=== PATIENT | female | born 1985 | race Caucasian/White ===

== ENCOUNTER 2018-04-08 03:09 | Emergency (ER) | payer OTHER ==
[2018-04-08] MEDS ORDERED: NS 1,000 ML IV ONE (03:17)
--- NOTE | 2018-04-08 03:26 | EDPHY ---
H & P Stated Complaint: abd cramping with vaginal bleeding and cramping 16 weeks preg Time Seen by Provider: 04/08/18 03:26 HPI/ROS: HPI CHIEF COMPLAINT: Vaginal bleeding in . HISTORY OF PRESENT ILLNESS: This otherwise healthy 32-year-old female, currently 16 weeks, presents emergency room with vaginal bleeding and some lower pelvic cramping. Patient states a week and half ago she had a cervical polyp removed. She blood for 3 days after this. Thought this was post surgical operative bleeding. This then resolved. However with the past 24 hr she developed some light vaginal bleeding pink in nature. Worse when she goes to move her stand up or walk. This evening she started bleeding a little bit more and thinks she passed blood clot. Had some lower pelvic cramping and decided come the emergency room for evaluation. Denies recent illness. Denies abdominal trauma. Followed by OBGYN Dr. Lynda Leo Past Medical History: Denies significant medical history Past Surgical History: Recent Cervical polyp removal. Social History: Denies drugs alcohol tobacco. Family History: Noncontributory. ROS REVIEW OF SYSTEMS: 10 Systems were reviewed and negative with the exception of the elements mentioned in the history of present illness. Exam Constitutional triage nursing summary reviewed, vital signs reviewed, awake/ alert. Eyes normal conjunctivae and sclera, EOMI, PERRLA. HENT normal inspection, atraumatic, moist mucus membranes, no epistaxis, neck supple/ no meningismus, no raccoon eyes. Respiratory clear to auscultation bilaterally, normal breath sounds, no respiratory distress, no wheezing. Cardiovascular rate normal, regular rhythm, no murmur, no edema, distal pulses normal. Gastrointestinal soft, non-tender, no rebound, no guarding, normal bowel sounds, no distension, no pulsatile mass. Genitourinary no CVA tenderness. Musculoskeletal no midline vertebral tenderness, full range of motion, no calf swelling, no tenderness of extremities, no meningismus, good pulses, neurovascularly intact. Skin pink, warm, & dry, no rash, skin atraumatic. Neurologic awake, alert and oriented x 3, AAOx3, moves all 4 extremities equally, motor intact, sensory intact, CN II-XII intact, normal cerebellar, normal vision, normal speech. Psychiatric normal mood/affect. Heme/Lymph/Immune no lymphadenopathy. Differential Diagnosis: Includes but is not limited to in a particular order threatened miscarriage, placenta previa, placental abruption, ectopic , bleeding from the cervix, Medical Decision Making: Plan for this patient blood work, type and screen Rh, beta quant, ultrasound a . Re-evaluate. Will also touch base with her OBGYN Dr. Leo Re-evaluation: Ultrasound unremarkable. Called to me by Dr. Morley. [id number], healthy, no previa or abruption. Unremarkable us. Spoke with Dr. Persaud, educational recruiter OBGYN, discussed case in detail. She is okay with patient going home. Should follow up with the office on Sunday and call for follow-up appointment. Discussed her urinalysis. Urine culture is okay to send. Did not want her treated as she has no symptoms and they will follow this up in clinic. Discussed this with the patient. Source: Patient - Personal History LMP (Females 10-55): EDC: 09/24/18 Current Tetanus/Diphtheria Vaccine: Yes Current Tetanus Diphtheria and Acellular Pertussis (TDAP): Yes - Medical/Surgical History Hx Asthma: No Hx Chronic Respiratory Disease: No Hx Diabetes: No Hx Cardiac Disease: No Hx Renal Disease: No Hx Cirrhosis: No Hx Alcoholism: No Hx HIV/AIDS: No Hx Splenectomy or Spleen Trauma: No Other PMH: wisdom teeth - Social History Smoking Status: Never smoked Constitutional: Initial Vital Signs Temperature (C) 37.1 C 04/08/18 03:11 Heart Rate 82 04/08/18 03:11 Respiratory Rate 16 04/08/18 03:11 Blood Pressure 125/63 H 04/08/18 03:11 O2 Sat (%) 97 04/08/18 03:11 O2 Delivery Mode Room Air Allergies/Adverse Reactions: No Known Allergies Allergy (Unverified 04/08/18 03:14) Home Medications: Medication Instructions Recorded NK [No Known Home Meds] 04/08/18 Medical Decision Making - Data Points Laboratory Results: Laboratory Results 04/08/18 03:30 04/08/18 03:30 04/08/18 04/08/18 04/08/18 03:30 03:30 03:30 WBC RBC Hgb Hct MCV MCH MCHC RDW Plt Count MPV Neut % (Auto) Lymph % (Auto) [place] % (Auto) Eos % (Auto) Baso % (Auto) Nucleat RBC Rel Count Absolute Neuts (auto) Absolute Lymphs (auto) Absolute Monos (auto) Absolute Eos (auto) Absolute Basos (auto) Absolute Nucleated RBC Immature Gran % Immature Gran # Sodium 138 mEq/L mEq/L (135-145) Potassium 4.0 mEq/L mEq/L (3.3-5.0) Chloride 105 mEq/L mEq/L (97-110) Carbon Dioxide 24 mEq/l mEq/l (22-31) Anion Gap 9 mEq/L mEq/L (8-16) BUN 11 mg/dL mg/dL (7-23) Creatinine 0.6 mg/dL mg/dL (0.6-1.0) Estimated GFR > 60 Glucose 88 mg/dL mg/dL (70-100) Calcium 8.9 mg/dL mg/dL (8.5-10.4) Beta HCG, Quant 40723.00 mIU/mL H mIU/mL (0.00-4.83) Urine Color YELLOW Urine Appearance CLEAR Urine pH 6.0 (5.0-7.5) Ur Specific [place] 1.010 (1.002-1.030) Urine Protein NEGATIVE (NEGATIVE) Urine Ketones NEGATIVE (NEGATIVE) Urine Blood 1+ H (NEGATIVE) Urine Nitrate NEGATIVE (NEGATIVE) Urine Bilirubin NEGATIVE (NEGATIVE) Urine Urobilinogen NEGATIVE EU EU (0.2-1.0) Ur Leukocyte Esterase TRACE H (NEGATIVE) Urine RBC 1-3 /hpf /hpf (0-3) Urine WBC 3-5 /hpf H /hpf (0-3) Ur Epithelial Cells TRACE /lpf /lpf (NONE-1+) Urine Bacteria 1+ /hpf H /hpf (NONE SEEN) Urine Mucus TRACE /lpf /lpf (NONE-1+) Urine Glucose NEGATIVE (NEGATIVE) Patient ABO/Rh A NEGATIVE 04/08/18 03:30 WBC 10.40 10^3/uL H 10^3/uL (3.80-9.50) RBC 3.92 10^6/uL L 10^6/uL (4.18-5.33) Hgb 11.6 g/dL L g/dL (12.6-16.3) Hct 33.1 % L % (38.0-47.0) MCV 84.4 fL fL (81.5-99.8) MCH 29.6 pg pg (27.9-34.1) MCHC 35.0 g/dL g/dL (32.4-36.7) RDW 12.7 % % (11.5-15.2) Plt Count 156 10^3/uL 10^3/uL (150-400) MPV 9.9 fL fL (8.7-11.7) Neut % (Auto) 72.5 % % (39.3-74.2) Lymph % (Auto) 21.0 % % (15.0-45.0) [place] % (Auto) 5.2 % % (4.5-13.0) Eos % (Auto) 0.8 % % (0.6-7.6) Baso % (Auto) 0.2 % L % (0.3-1.7) Nucleat RBC Rel Count 0.0 % % (0.0-0.2) Absolute Neuts (auto) 7.55 10^3/uL H 10^3/uL (1.70-6.50) Absolute Lymphs (auto) 2.18 10^3/uL 10^3/uL (1.00-3.00) Absolute Monos (auto) 0.54 10^3/uL 10^3/uL (0.30-0.80) Absolute Eos (auto) 0.08 10^3/uL 10^3/uL (0.03-0.40) Absolute Basos (auto) 0.02 10^3/uL 10^3/uL (0.02-0.10) Absolute Nucleated RBC 0.00 10^3/uL 10^3/uL (0-0.01) Immature Gran % 0.3 % % (0.0-1.1) Immature Gran # 0.03 10^3/uL 10^3/uL (0.00-0.10) Sodium Potassium Chloride Carbon Dioxide Anion Gap BUN Creatinine Estimated GFR Glucose Calcium Beta HCG, Quant Urine Color Urine Appearance Urine pH Ur Specific [place] Urine Protein Urine Ketones Urine Blood Urine Nitrate Urine Bilirubin Urine Urobilinogen Ur Leukocyte Esterase Urine RBC Urine WBC Ur Epithelial Cells Urine Bacteria Urine Mucus Urine Glucose Patient ABO/Rh Medications Given: Discontinued Medications Sodium Chloride (Ns) 1,000 mls @ 0 mls/hr IV EDNOW ONE; Wide Open PRN Reason: Protocol Stop: 04/08/18 03:18 Last Admin: 04/08/18 03:39 Dose: 1,000 mls Nitrofurantoin (Macrobid 100mg Prepack#2) 1 btl TAKEHOME EDNOW ONE PRN Reason: Protocol Stop: 04/08/18 04:23 Last Admin: 04/08/18 04:27 Dose: 1 btl Nitrofurantoin Macrocrystals (Macrobid) 100 mg PO EDNOW ONE PRN Reason: Protocol Stop: 04/08/18 04:23 Last Admin: 04/08/18 04:27 Dose: 100 mg Departure - Departure Disposition: Home, Routine, Self-Care Clinical Impression: Vaginal bleeding during Condition: Good Instructions: Threatened Miscarriage (ED) Referrals: NONE *PRIMARY CARE P,. [Primary Care Provider] - As per Instructions Lynda Leo MD [Medical Doctor] - As per Instructions
[2018-04-08 03:43] VITALS: BP 115/62
[2018-04-08 03:48] LABS: PLATELET COUNT 156 10^3/uL (150-400)
[2018-04-08] MEDS ORDERED: NITROFURANTOIN MACROBID 100 MG CAP PO ONE (04:22)
[2018-04-08] MEDS ORDERED: NITROFURANTOIN 100MG PREPACK#2 BTL TAKEHOME ONE (04:22)
== END 2018-04-08 04:57 | disposition home or self-care (01) ==
DX: O26.851 Spotting complicating pregnancy, first trimester (principal); Z3A.16 16 weeks gestation of pregnancy

== ENCOUNTER 2018-04-13 14:19 | Emergency (ER) | payer OTHER ==
--- NOTE | 2018-04-13 16:23 | EDPHY ---
H & P Stated Complaint: vaginal bleeding and cramping for 2 weeks, 16 weeks Time Seen by Provider: 04/13/18 15:44 HPI/ROS: CHIEF COMPLAINT: Blood in urine HISTORY OF PRESENT ILLNESS: 32-year-old female 16 weeks presents with blood in urine. She was seen in this emergency department 04/08/2018 for possible vaginal bleeding. Pelvic ultrasound revealed an IUP, 15 weeks 6 days, without evidence of abruption or placenta previa. Took one dose of abx for possible UTI, felt much better transiently, then sx recurred. She followed up with OBGYN, urine culture negative. Today she had a small amount of blood in the toilet after urination. The bleeding occurs after urination, sometimes when she wipes and other times there is blood in the toilet. s/p cervical polyp removal 2 weeks ago. REVIEW OF SYSTEMS: complete 10 system ROS reviewed and is negative except for the noted symptoms in the HPI - Personal History LMP (Females 10-55): - Medical/Surgical History Hx Asthma: No Hx Chronic Respiratory Disease: No Hx Diabetes: No Hx Cardiac Disease: No Hx Renal Disease: No Hx Cirrhosis: No Hx Alcoholism: No Hx HIV/AIDS: No Hx Splenectomy or Spleen Trauma: No Other PMH: wisdom teeth - Social History Smoking Status: Never smoked Alcohol Use: Sober - Physical Exam Exam: General Appearance: Alert, pleasant Eyes: Pupils equal and round, no conjunctival pallor ENT, Mouth: Mucous membranes moist Neck: Normal inspection Respiratory: Lungs are clear to auscultation Cardiovascular: Regular rate and rhythm Gastrointestinal: Abdomen is soft, gravid, mild suprapubic tenderness Genitourinary:BUSV negative, vaginal vault normal, no bleeding, cervix closed, irregular, no bleeding Neurological: A&O, nonfocal, normal gait Skin: Warm and dry, no rash Extremities: Normal inspection Psychiatric: Mood and affect normal Constitutional: Initial Vital Signs Temperature (C) 36.7 C 04/13/18 14:22 Heart Rate 107 H 04/13/18 14:22 Respiratory Rate 18 04/13/18 14:22 Blood Pressure 145/86 H 04/13/18 14:22 O2 Sat (%) 95 04/13/18 14:22 O2 Delivery Mode Room Air Allergies/Adverse Reactions: No Known Allergies Allergy (Verified 04/13/18 14:21) Home Medications: Medication Instructions Recorded Cephalexin [Keflex (*)] 500 mg PO BID #14 cap 04/13/18 Medical Decision Making ED Course/Re-evaluation: This pt presents with hematuria. exam is normal, without evidence for bleeding. 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 Kidney stone also considered, but pt does not have typical pain of renal colic. Warning signs discussed. Differential Diagnosis: includes though not limited to placenta previa, abruption, miscarriage, kidney stone, UTI - Data Points Medications Given: Discontinued Medications Cephalexin HCl (Keflex) 500 mg PO EDNOW ONE PRN Reason: Protocol Stop: 04/13/18 16:55 Last Admin: 04/13/18 17:02 Dose: 500 mg Departure - Departure Disposition: Home, Routine, Self-Care Clinical Impression: Hematuria due to acute cystitis Condition: Good Instructions: Cephalexin (By mouth), Urinary Tract Infection in Women (ED) Additional Instructions: Return for worsening symptoms or any concerns. Followup with your corporate quality manager in 2-3 days, sooner if worse. Referrals: NONE *PRIMARY CARE P,. [Primary Care Provider] - As per Instructions Prescriptions: Cephalexin [Keflex (*)] 500 mg PO BID #14 cap
[2018-04-13] MEDS ORDERED: CEPHALEXIN 500 MG CAP PO ONE (16:54)
[2018-04-13 17:10] VITALS: BP 136/86
== END 2018-04-13 17:09 | disposition home or self-care (01) ==
DX: O26.851 Spotting complicating pregnancy, first trimester (principal); O23.11 Infections of bladder in pregnancy, first trimester; Z3A.16 16 weeks gestation of pregnancy

== ENCOUNTER 2018-04-24 04:04 | Observation (INO) | payer OTHER ==
[2018-04-24] MEDS ORDERED: NS 1,000 ML IV ONE (04:10)
--- NOTE | 2018-04-24 04:12 | EDPHY ---
H & P Stated Complaint: 18 weeks cramping and bleeding Time Seen by Provider: 04/24/18 04:12 HPI/ROS: HPI CHIEF COMPLAINT: Vaginal bleeding, pelvic cramping HISTORY OF PRESENT ILLNESS: 32-year-old female, she currently 18 weeks , presents emergency room with 45 min of onset vaginal bleeding and pelvic cramping. This woke from sleep. She felt a little wet. Went to the bathroom and developed worsening bleeding. Pelvic cramping. Denies vomiting, denies fever, denies dysuria. Patient states she has A negative type blood Patient's OBGYN is Dr. Leo. Past Medical History: Denies significant medical history Past Surgical History: Cervical polyp removed, previous 2 abortions Social History: Lives locally denies drugs alcohol tobacco. Family History: Noncontributory ROS REVIEW OF SYSTEMS: 10 Systems were reviewed and negative with the exception of the elements mentioned in the history of present illness. Exam Constitutional triage nursing summary reviewed, vital signs reviewed, awake/ alert. Eyes normal conjunctivae and sclera, EOMI, PERRLA. HENT normal inspection, atraumatic, moist mucus membranes, no epistaxis, neck supple/ no meningismus, no raccoon eyes. Respiratory clear to auscultation bilaterally, normal breath sounds, no respiratory distress, no wheezing. Cardiovascular rate normal, regular rhythm, no murmur, no edema, distal pulses normal. Gastrointestinal soft, non-tender, no rebound, no guarding, normal bowel sounds, no distension, no pulsatile mass. Genitourinary no CVA tenderness. Musculoskeletal no midline vertebral tenderness, full range of motion, no calf swelling, no tenderness of extremities, no meningismus, good pulses, neurovascularly intact. Skin pink, warm, & dry, no rash, skin atraumatic. Neurologic awake, alert and oriented x 3, AAOx3, moves all 4 extremities equally, motor intact, sensory intact, CN II-XII intact, normal cerebellar, normal vision, normal speech. Psychiatric normal mood/affect. Heme/Lymph/Immune no lymphadenopathy. Differential Diagnosis: Includes but is not limited to in a particular order : Threatened miscarriage, bleeding in , placenta previa. Medical Decision Making: Plan for this patient IV establishment, basic blood work, ultrasound, IV fluid bolus. Re-evaluation: Ultrasound reviewed. This shows oligohydramnios, HR 163. Otherwise negative US 0527: I spoke with Dr. Watt, reviewed the case in detail with her. Patient will most likely go to L and D. 0532AM: Spoke with Dr. Watt, Will see patient LD. Observation Source: Patient - Personal History LMP (Females 10-55): EDC: 09/24/17 Current Tetanus/Diphtheria Vaccine: Yes Current Tetanus Diphtheria and Acellular Pertussis (TDAP): Yes - Medical/Surgical History Hx Asthma: No Hx Chronic Respiratory Disease: No Hx Diabetes: No Hx Cardiac Disease: No Hx Renal Disease: No Hx Cirrhosis: No Hx Alcoholism: No Hx HIV/AIDS: No Hx Splenectomy or Spleen Trauma: No Other PMH: wisdom teeth - Social History Smoking Status: Never smoked Constitutional: Initial Vital Signs Temperature (C) 36.5 C 04/24/18 04:08 Heart Rate 118 H 04/24/18 04:08 Respiratory Rate 16 04/24/18 04:08 Blood Pressure 152/78 H 04/24/18 04:08 O2 Sat (%) 97 04/24/18 04:08 O2 Delivery Mode Room Air Allergies/Adverse Reactions: No Known Allergies Allergy (Verified 04/24/18 04:10) Home Medications: Medication Instructions Recorded Cephalexin [Keflex (*)] 500 mg PO BID #14 cap 04/13/18 Medical Decision Making - Data Points Laboratory Results: Laboratory Results 04/24/18 04:38 04/24/18 04:38 Medications Given: Discontinued Medications Acetaminophen (Tylenol) 1,000 mg PO ONCE ONE Stop: 04/25/18 14:02 Last Admin: 04/25/18 14:54 Dose: 1,000 mg Sodium Chloride (Ns) 1,000 mls @ 0 mls/hr IV EDNOW ONE; Wide Open PRN Reason: Protocol Stop: 04/24/18 04:11 Last Admin: 04/24/18 04:56 Dose: 1,000 mls Departure - Departure Disposition: [facility] Clinical Impression: Threatened miscarriage Condition: Good
[2018-04-24 04:53] LABS: PLATELET COUNT 158 10^3/uL (150-400)
[2018-04-24 06:26] VITALS: BP 138/64
--- NOTE | 2018-04-24 07:35 | GHP ---
DATE OF ADMISSION: 04/24/2018 ADMITTING DIAGNOSES: 1. Intrauterine at 18 weeks 1 day. 2. Vaginal bleeding. 3. Pelvic cramping. HISTORY OF PRESENT ILLNESS: The patient is a 32-year-old, 3, para 0-0-2 -0 at 18 weeks 1 day with estimated due date 09/24/2018 by last menstrual period 12/18/2017 and consistent with first trimester ultrasound at 9 weeks. The patient presents to the emergency room with complaints of vaginal bleeding and pelvic cramping that started 45 minutes prior to coming into the hospital. The patient states she was sleeping and woke up feeling wet. She went to the bathroom and noticed there was bright red bleeding. The patient is having menstrual type cramping this morning as well as low back pain. The patient states prior to this, for about 2-3 weeks, she has had pinkish-red spotting only when she urinates. She has never stained her underwear. About a month ago she had a cervical polyp removed, and currently is on pelvic rest. She is not doing any heavy lifting. The patient denies any fevers, chills, nausea, vomiting. The patient has good care at [facility] and presented in her first trimester. The is complicated by bleeding at 14 weeks where she did receive Rhogam for being Rh negative. Elevated BMI with normal early Glucola. Patient recently found out results of abnormal AFP and has Level II with MFM 05/06/18. Innatal screen was negative. PAST OB HISTORY: Therapeutic x2. PAST ICU REGISTERED NURSE HISTORY: Age of menarche is 12. Cycles are regular, every 24-25 days for 2-3 days. Patient denies a history of abnormal Pap smears, but did have + HPV in the past and no colpo done. Denies exposure to any other STDs. GC/CT cultures negative 02/15/18. MEDICATIONS: vitamins with DHA. ALLERGIES: Amoxicillin. PAST MEDICAL HISTORY: ? Allergy-induced asthma, anxiety. PAST SURGICAL HISTORY: TAB x2. FAMILY HISTORY: Mother with kidney stones. Father with hypertension. SOCIAL HISTORY: She is and lives with her . She is a consultative sales associate. Denies any alcohol, tobacco, or illicit drug use currently. REVIEW OF SYSTEMS: 10-point review of systems is negative. Pertinent positives noted in HPI. LABS: First trimester H and H 12.7 and 36.7, platelets 160. A negative , Antibody negative. Early glucola 79. RPR nonreactive. Rubella immune. HBSAg negative. HIV negative. Standard panel negative. UDS negative. Varicella immune. UA and culture negative. Innatal negative. AFP abnormal / NTD risk. LABORATORY: WBC 10.88. H and H, 11.7 and 33. STUDIES: Ultrasound reveals FHR 163 bpm. Oligo with KASSI at 3 cm. Anterior placenta with no previa. Cervix is closed. OBJECTIVE: VITAL SIGNS: On admission are stable. The patient is afebrile at 36.4. Heart rate 98. Respirations 16. Blood pressure 138/4. GENERAL: Well- nourished, well-developed female. Alert and oriented x3. No apparent distress. SKIN: Warm, dry, no rash. NEURO: Grossly intact. CARDIOVASCULAR: Regular rate and rhythm. LUNGS: Clear to auscultation bilaterally. ABDOMEN: Gravid, soft, nontender. PELVIC EXAM: There is blood noted in the vaginal vault with blood coming from the cervical os. Cervix appears closed. EXTREMITIES: Normal to inspection without calf tenderness or edema. heart rate by doppler was in 160's. ASSESSMENT/PLAN: Patient is a 32-year-old, 3, para 0-0-2-0 at 18 weeks and 1 day with vaginal bleeding, pelvic cramping and oligohydramnios 1. Admit to Labor and Delivery for observation. 2. Reviewed u/s findings with patient showing oligo- low amniotic fluid. Discussed different causes including anomalies, PPROM, and abruption. 3. Fern test was negative, result may not be accurate secondary to blood. Unable to preform Amnisure and/or nitrazine secondary to bleeding. Cannot role out ROM at this time. 4. Patient needs level II u/s with [facility], will try to schedule when they are here in hospital this week. 5. Will continue to closely monitor for continue bleeding and s/s of labor. /[id number]/MODL MTDD
--- NOTE | 2018-04-24 09:49 | OBPROG ---
Labor Progress Note Assessment/Plan: Assessment: 32 yo at 18w1d with vaginal bleeding and possible leakage of fluid, low KASSI, abnl MSAFP. Plan: Continue observation for now. Quantify blood loss with weighing pads. Would be best to determine if has had PPROM occur, with regards to infection risk and prognosis. Spoke with Dr. Khloe Blackwell [facility], pediatric occupational therapist at the [place] - recommended continued observation for now. Will plan for observation until no bleeding for at least 24 hours. Unfortunately, [facility] are not seeing pts here in [place] until Sunday, which is 5 days from now. Will attempt to get a an appointment for pt for Sunday. RH neg - received Rhogam on 03/25/18 Lynda Leo MD, FACOG, [facility] 04/24/18 16:17 04/24/18 16:17 Subjective/Intrapartum Course: Pt seen around 1000, minimal bleeding since arrival in L&D. Occasional cramping. Describes a story with about 3 episodes of leaking fluid over the past 1.5 weeks , though she thought it was just urinary incontinence. Objective: Temp Pulse Resp BP Pulse Ox 36.4 C 88 16 138/64 H 98 04/24/18 06:25 04/24/18 06:25 04/24/18 06:25 04/24/18 06:25 04/24/18 06:25 gen - pleasant, NAD CV - RRR chest - CTAB abd - soft, gravid, NT ext - calves NT, trace edema peripad - small amount red blood on pad over past hour FHT doppled at 160 Oxytocin Orders Assessment - Pre-Induction/Augmentation Assessment Gestational Age: 18 week(s) and 1 day(s) ICD10 Worksheet Patient Problems: Problems Problem Status Onset Threatened miscarriage Acute
--- NOTE | 2018-04-24 19:02 | OBPROG ---
Labor Progress Note Assessment/Plan: Assessment: 32 yo at 18w1d with vaginal bleeding and possible leakage of fluid, low KASSI, abnl MSAFP. Plan: Continue observation for now. Quantify blood loss with weighing pads. Would be best to determine if has had PPROM occur, with regards to infection risk and prognosis. Spoke with Dr. Khloe Blackwell, [facility], custodial operations manager at the [place] - recommended continued observation for now. Will plan for observation until no bleeding for at least 24 hours. Unfortunately, [facility] are not seeing pts here in [place] until Sunday, which is 5 days from now. Will attempt to get a an appointment for pt for Sunday. RH neg - received Rhogam on 03/25/18 Lynda Leo MD, FACOG, [facility] A/P: 32 yo at 18w1d with vaginal bleeding, low KASSI, abnl MSAFP - continued small amount of spotting today. During the day today - bleeding is only with urination. Will obtain renal ultrasound, and brief ultrasound to recheck KASSI and get an EFW. [facility] not in [place] tomorrow and no other availability at other clinics until Sunday so will schedule MFM appointment on Sunday here at [facility]. S/P Rhogam 03/25/18 Lynda Leo MD, FACOG [facility] 04/24/18 18:57 Subjective/Intrapartum Course: Pt seen around 1000, minimal bleeding since arrival in L&D. Occasional cramping. Describes a story with about 3 episodes of leaking fluid over the past 1.5 weeks , though she thought it was just urinary incontinence. 04/24/18 19:02 Pt doing well. Minimal spotting on pad throughout the day. When voids - has drops of blood into toilet. No back pain. Minimal cramping. No episodes of fluid leakage today. Objective: Patient ABO/Rh A NEGATIVE 04/24/18 10:05 Temp Pulse Resp BP Pulse Ox 36.4 C 88 16 138/64 H 98 04/24/18 06:25 04/24/18 06:25 04/24/18 06:25 04/24/18 06:25 04/24/18 06:25 gen - pleasant, NAD back - no CVAT abd - gravid, soft, fundus nontender ext - calves NT pads weighed - total <10ml - FHR Assessment Meza FHR (bpm): 156 (on doppler) Oxytocin Orders Assessment - Pre-Induction/Augmentation Assessment Gestational Age: 18 week(s) and 1 day(s) ICD10 Worksheet Patient Problems: Problems Problem Status Onset Threatened miscarriage Acute
--- NOTE | 2018-04-24 21:13 | OBPROG ---
Labor Progress Note Assessment/Plan: Assessment: 32 yo at 18w1d with vaginal bleeding and possible leakage of fluid, low KASSI, abnl MSAFP. Plan: Continue observation for now. Quantify blood loss with weighing pads. Would be best to determine if has had PPROM occur, with regards to infection risk and prognosis. Spoke with Dr. Khloe Blackwell, [facility], manager control at the [place] - recommended continued observation for now. Will plan for observation until no bleeding for at least 24 hours. Unfortunately, [facility] are not seeing pts here in [place] until Sunday, which is 5 days from now. Will attempt to get a an appointment for pt for Sunday. RH neg - received Rhogam on 03/25/18 Lynda Leo MD, [facility] A/P: 32 yo at 18w1d with vaginal bleeding, low KASSI, abnl MSAFP - continued small amount of spotting today. During the day today - bleeding is only with urination. Will obtain renal ultrasound, and brief ultrasound to recheck KASSI and get an EFW. [facility] not in [place] tomorrow and no other availability at other clinics until Sunday so will schedule MFM appointment on Sunday here at [facility]. S/P Rhogam 03/25/18 Lynda Leo MD, [facility] 04/24/18 18:57 A/P: 32 yo at 18w1d - with VB, low KASSI, abnl MSAFP No evidence of hydronephrosis or obstruction on renal ultrasound. KASSI consistent at 3.8cm. Cont plan as above - observation until no bleeding for at least 24 hours. T&S done today. Keep IV access currently. Lynda Leo MD, [facility] 04/24/18 21:13 Subjective/Intrapartum Course: Pt seen around 1000, minimal bleeding since arrival in L&D. Occasional cramping. Describes a story with about 3 episodes of leaking fluid over the past 1.5 weeks , though she thought it was just urinary incontinence. 04/24/18 19:02 Pt doing well. Minimal spotting on pad throughout the day. When voids - has drops of blood into toilet. No back pain. Minimal cramping. No episodes of fluid leakage today. Objective: Patient ABO/Rh A NEGATIVE 04/24/18 10:05 Temp Pulse Resp BP Pulse Ox 36.4 C 88 16 138/64 H 98 04/24/18 06:25 04/24/18 06:25 04/24/18 06:25 04/24/18 06:25 04/24/18 06:25 Renal US report - no hydronephrosis, bilateral ureteral jets, PVR 10 ml. Per US tech - AUA = 18w1d = 43%ile with EFW = 8oz, cephalic, KASSI 3.8cm, FHR = 130, cervix 3.3cm long and appears closed Oxytocin Orders Assessment - Pre-Induction/Augmentation Assessment Gestational Age: 18 week(s) and 1 day(s) ICD10 Worksheet Patient Problems: Problems Problem Status Onset Threatened miscarriage Acute
--- NOTE | 2018-04-25 07:56 | OBPROG ---
Labor Progress Note Assessment/Plan: Assessment: Pt is 32 y/o @ 18 2/7 weeks with vaginal bleeding, oligo, abnl MSAFP HD # 1 Plan: No further bleeding x 24 hrs now Brownish spotting noted on pad in bathroom from last night as well as the pad the pt is wearing now since 129 Pt does still endorse pink-red blood when she urinates (which is not a change) but with mucous-clear discharge and no further cramping Renal u/s revealed no nephrolithiasis or hydronephrosis Repeat u/s yesterday afternoon revealed EFW 43%, KASSI 3.8 cm, anterior placenta with no previa Unable to completely r/o PPROM but pt remains afebrile with no s/s infection If pt remains stable with no further bleeding this am, will plan for d/c Plan on Level II u/s with MFM on Sunday, 04/29 and f/u in our office next week Discussed modified bedrest and continued pelvic rest 04/25/18 08:05 Subjective/Intrapartum Course: Pt seen around 1000, minimal bleeding since arrival in L&D. Occasional cramping. Describes a story with about 3 episodes of leaking fluid over the past 1.5 weeks , though she thought it was just urinary incontinence. 04/24/18 19:02 Pt doing well. Minimal spotting on pad throughout the day. When voids - has drops of blood into toilet. No back pain. Minimal cramping. No episodes of fluid leakage today. 04/25/18 08:10 Pt seen and examined. Denies any vaginal bleeding like yesterday morning, some brownish spotting noted on pad. Pt still endorses red blood when she voids as well as mucus-clear discharge. No episodes of LOF throughout the night. No further cramping at this time. Still has some right sided back pain. Denies any fevers or chills. Objective: Patient ABO/Rh A NEGATIVE 04/24/18 10:05 Temp Pulse Resp BP Pulse Ox 36.4 C 88 16 138/64 H 98 04/24/18 06:25 04/24/18 06:25 04/24/18 06:25 04/24/18 06:25 04/24/18 06:25 - Contraction Pattern Assessment Current Contraction Pattern: Other (Specify) (none) - FHR Assessment Meza FHR (bpm): 150 (by doppler) - Physical Exam General Appearance: WD/WN, alert, no apparent distress Abdomen: non-tender, soft Skin: normal color, warm/dry Neuro/Psych: alert, normal mood/affect, oriented x 3 Oxytocin Orders Assessment - Pre-Induction/Augmentation Assessment Gestational Age: 18 week(s) and 1 day(s) ICD10 Worksheet Patient Problems: Problems Problem Status Onset Threatened miscarriage Acute
[2018-04-25] MEDS ORDERED: ACETAMINOPHEN 500 MG TAB PO ONE (14:01)
--- NOTE | 2018-04-25 16:47 | OBPROG ---
Labor Progress Note Assessment/Plan: Assessment: Pt is 32 y/o @ 18 2/7 weeks with vaginal bleeding, oligo, abnl MSAFP HD # 1 Plan: No further bleeding now greater than 24 hrs now Pt does still endorse pink-red blood when she urinates (which is not a change) Headache and mild cramping relieved with Tylenol Pt stable for d/c home Plan on Level II u/s with MFM on Sunday, 04/29 at 0730 and f/u in our office next week Discussed modified bedrest and continued pelvic rest 04/25/18 16:44 Subjective/Intrapartum Course: Pt seen around 1000, minimal bleeding since arrival in L&D. Occasional cramping. Describes a story with about 3 episodes of leaking fluid over the past 1.5 weeks , though she thought it was just urinary incontinence. 04/24/18 19:02 Pt doing well. Minimal spotting on pad throughout the day. When voids - has drops of blood into toilet. No back pain. Minimal cramping. No episodes of fluid leakage today. 04/25/18 08:10 Pt seen and examined. Denies any vaginal bleeding like yesterday morning, some brownish spotting noted on pad. Pt still endorses red blood when she voids as well as mucus-clear discharge. No episodes of LOF throughout the night. No further cramping at this time. Still has some right sided back pain. Denies any fevers or chills. 04/25/18 16:45 Pt was c/o REVELES earlier and some mild cramping in b/l lower abd, worse with movement. Denies any further bleeding at this time. Ready to go home and relax. Objective: Patient ABO/Rh A NEGATIVE 04/24/18 10:05 Temp Pulse Resp BP Pulse Ox 36.4 C 88 16 138/64 H 98 04/24/18 06:25 04/24/18 06:25 04/24/18 06:25 04/24/18 06:25 04/24/18 06:25 - Contraction Pattern Assessment Current Contraction Pattern: Other (Specify) (none) - FHR Assessment Meza FHR (bpm): 156 (by doppler) Oxytocin Orders Assessment - Pre-Induction/Augmentation Assessment Gestational Age: 18 week(s) and 1 day(s) ICD10 Worksheet Patient Problems: Problems Problem Status Onset Threatened miscarriage Acute Vaginal bleeding before 22 weeks gestation Acute
--- NOTE | 2018-05-02 12:03 | GDS ---
ADMISSION DIAGNOSES: Intrauterine at 18 weeks and 1 day with vaginal bleeding and pelvic cramping. HOSPITAL COURSE: Patient was admitted to Labor and Delivery for observation. Reviewed ultrasound findings with patient showing oligohydramnios, with an KASSI of 3. Discussed different causes, including anomalies, PPROM and abruption. Fern test was negative; result may not be accurate, secondary to blood. We were unable to perform AmniSure or Nitrazine, secondary to bleeding. Explained to patient that we cannot rule out rupture of membranes at this time. Patient does need a level 2 ultrasound with MFM, secondary to an elevated MSAFP. Plan to continue to closely monitor overnight for continued bleeding and/or signs and symptoms of labor. Patient had no further bleeding or leakage of fluid throughout her stay. She was stable. MFM was consulted and agreed with plan to observe for 24 hours. Patient did state on HD #1 that bleeding is only with urination. Renal ultrasound was obtained that did not show any nephrolithiasis and no hydronephrosis. Repeat ultrasound revealed estimated weight 43rd percentile, KASSI of 3.8 cm, and anterior placenta with no previa. DISCHARGE MEDICATIONS: vitamins. DISCHARGE INSTRUCTIONS: Recommend modified bedrest at home. To continue pelvic rest, that is nothing in vagina including sex. Please stay well hydrated, with lots of water. Call if any vaginal bleeding that stains your underwear, abdominal pain or cramping, and fevers or chills. FOLLOW-UP: Patient has an appointment with Maternal Medicine for Level 2 ultrasound on 04/29/18 at 7:30 a.m. Instructed to call the office and make a follow-up appointment at [facility] in 1 week. DISPOSITION: The patient is being discharged home in stable condition. /[id number]/MODL MTDD
== END 2018-04-25 18:52 | disposition home or self-care (01) ==
LOC: FLD 05:44
PROVIDERS: ADMIT Obstetrics & Gynecology; ATTEND Obstetrics & Gynecology
DX: O20.0 Threatened abortion (principal); O99.281 Endocrine, nutritional and metabolic diseases complicating pregnancy, first trimester; E86.9 Volume depletion, unspecified; Z3A.18 18 weeks gestation of pregnancy; O41.01X0 Oligohydramnios, first trimester, not applicable or unspecified
CPT/HCPCS: 76770; 76805; 76815; 96360; 99285; G0378

== ENCOUNTER → 2018-04-29 | Outpatient (CLI) | payer OTHER | LOC: FIMAGING 07:20 | PROVIDERS: ATTEND Hospitalist | DX: O41.02X0 Oligohydramnios, second trimester, not applicable or unspecified (principal); O99.340 Other mental disorders complicating pregnancy, unspecified trimester; O99.512 Diseases of the respiratory system complicating pregnancy, second trimester; J45.909 Unspecified asthma, uncomplicated; F41.9 Anxiety disorder, unspecified; Z3A.18 18 weeks gestation of pregnancy ==

== ENCOUNTER → 2018-09-10 | Outpatient (CLI) | payer OTHER | LOC: CIMAGING 13:48 | PROVIDERS: ATTEND Family Medicine | DX: M79.671 Pain in right foot (principal); M77.31 Calcaneal spur, right foot | CPT/HCPCS: 73620-PO ==